=== PATIENT | male | born 1945 | race Caucasian/White ===

== ENCOUNTER → 2023-09-01 | Outpatient (CLI) | payer MEDICARE, SELFPAY ==
--- OUTSIDE RECORDS SUMMARY | 2023-09-01 10:13 | XMS RPT_ITS | CCD ---
Author Name Unknown Address [address] [place] [address] Organization [facility] Care Team Providers Care [place] Supervisor Name Role Phone Aracelis Mancera Unavailable [phone] RAUL BOLDEN Unavailable Unavailable ARACELIS MANCERA Unavailable Unavailab Jamin Romero Unavailable Unavailable Aracelis Mancera Unavailable Unavailable Justen Chavez Unavailable Unavailable Aracelis Mancera Unavailable Unavailable Aracelis Mancera Primary Care Provider [phone] Aracelis Mancera Unavailable Unavailable Unavailable Aracelis Mancera Unavailable Aracelis Vang Unavailable Aracelis Mancera MD Primary Care Provider Unavailable Unavailable MD ARACELIS MANCERA Primary Care DO SONI Krishnamurthy Attending Unavailab Alfonso Mckenzie Attending Unavailable MD ARACELIS MANCERA Primary Care Aracelis Mistry MD Primary Care Provider [phone] Aracelis Mancera MD Unavailable [phone] Dr. Jamin Lynch Referring Unav sylvia Lynch, Dr. Jamin Calderon Attending Unav ailable Calderon, Dr. Aracelis Calderon Primary Care MD ALFONSO Griffiths Attending Unavailable Calderon, Dr. Aracelis Calderon Primary Care MD ALFONSO Griffiths Referring Unavailable ARACELIS MANCERA Attending Unavailable ARACELIS MANCERA Primary Care Unavailable ALFONSO BACK Attending Unavailable ALFONSO BACK Referring Unavailable ARACELIS MANCERA Primary Care Unavailable ARACELIS MANCERA Primary Care Unavailable Allergies Allergy Classification Reported Allergen(s) Allergy Type Date of Onset Reaction(s) Facility Finasteride (3 sources) Finasteride; Translations: [finasteride] Drug Allergy Unknown [facility] Work Phone: NSAIDs (3 sources) Indomethacin; Translations: [indomethacin] Drug Allergy Unknown [facility] Work Phone: Opioid Agonists (3 sources) traMADol; Translations: [tramadol] Drug Allergy Unknown [facility] Work Phone: (20 sources) traMADol; Translations: [TRAMADOL] Propensity to adverse reactions to drug 6 Unknown [facility] (20 sources) Finasteride; Translations: [finasteride] Drug Allergy 3 Unknown [facility] (20 sources) Indomethacin; Translations: [indomethacin] Drug Allergy [address] [facility] Work Phone: Medications Current Medications Medication Drug Class(es) Dates Sig (Normalized) Sig (Original) 1 ml abatacept 125 mg/ml auto-injector (20 sources) Selective T Cell Costimulation Modulator Start: 02-19-2021 Orencia ClickJect 125 mg/mL auto-injector auto-injection Inject under the skin. 0 02/19/2021 Active Completed/Discontinued Medications Medication Drug Class(es) Dates Sig (Normalized) Sig (Original) acetaminophen 325 mg / HYDROcodone bitartrate 5 mg oral tablet (6 sources) Opioid Agonist Start: 08-20-2022 End: 04-12-2023 take 1 tablet by mouth every six hours HYDROcodone-Acetam inophen 5-325 MG Oral Tablet TAKE 1 TABLET Every 6 hours PRN Quantity: 28 Refills: 0 Ordered: 20-Aug-2022 Jamin Lynch MD Start : 20-Aug-2022 Active [id number] 200 actuat albuterol 0.09 mg/actuat metered dose inhaler (10 sources) beta2-Adrenergic Agonist Start: 08-20-2022 take 2-4 puff(s) by inhalation every four hours as needed Albuterol Sulfate HFA 108 (90 Base) MCG/ACT Inhalation Aerosol Solution 2 - 4 PUFFS Q 4 HOURS PRN Quantity: 1 Refills: 11 Ordered: 20-Aug-2022 Jamin Lynch MD Start : 20-Aug-2022 Active Problems Active Problems Problem Classification Problem Date Documented Date Episodic/Chronic Administrative/social admission (20 sources) Drug therapy finding; Translations: [Encounters for other specified administrative purpose] Episodic Allergic reactions (20 sources) Inflammatory dermatosis; Translations: [Contact dermatitis and other eczema, unspecified cause] Onset: 04-07-2023 04-07-2023 Episodic Chronic obstructive pulmonary disease and bronchiectasis (10 sources) Chronic bronchiolitis; Translations: [Other chronic bronchitis] Onset: 04-07-2023 Resolved: 04-12-2023 04-12-2023 Chronic Esophageal disorders (10 sources) Gastroesophageal reflux disease without esophagitis; Translations: [Esophageal reflux] Onset: 04-07-2023 04-07-2023 Chronic Genitourinary symptoms and ill-defined conditions (20 sources) Splitting of urinary stream; Translations: [Nocturia] Onset: 04-07-2023 04-07-2023 Episodic Hyperplasia of prostate (20 sources) Benign prostatic hyperplasia; Translations: [Hypertrophy (benign) of prostate with urinary obstruction and other lower urinary tract symptoms (LUTS)] Onset: 04-07-2023 04-07-2023 Chronic Immunizations and screening for infectious disease (20 sources) Patient encounter status; Translations: [Other specified vaccination] 04-12-2023 Episodic Joint disorders and dislocations; trauma-related (3 sources) Traumatic arthropathy-elbow; 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, left elbow] Onset: 04-27-2016 04-27-2016 Chronic Noninfectious gastroenteritis (20 sources) Collagenous colitis; Translations: [Other and unspecified noninfectious gastroenteritis and colitis] Onset: 04-07-2023 04-07-2023 Chronic Noninfectious gastroenteritis (20 sources) Non-specific colitis; Translations: [Collagenous colitis] Onset: 04-07-2023 04-07-2023 Episodic Past or Other Problems Problem Classification Problem Date Documented Da te Episodic/Chronic E Codes: Fall (1 source) Fall in (into) shower or empty bathtub, initial encounter; Translations: [Fall in (into) shower or empty bathtub, initial encounter] Onset: 08-18-2022 Episodic Other fractures (1 source) Multiple fractures of ribs, right side, initial encounter for closed fracture; Translations: [Multiple fractures of ribs, right side, init for clos fx] Onset: 08-18-2022 Episodic Other lower respiratory disease (20 sources) Cough; Translations: [Cough] Onset: 04-07-2023 Resolved: 04-12-2023 02-10-2021 Episodic Other lower respiratory disease (1 source) Pleurodynia; Translations: [Pleurodynia] Onset: 08-18-2022 Episodic Other non-traumatic joint disorders (4 sources) Pain in wrist; Translations: [Pain in right wrist] Onset: 12-03-2015 12-03-2015 Episodic Other non-traumatic joint disorders (1 source) Pain of right wrist; Translations: [Pain in right wrist] Onset: 04-27-2016 04-27-2016 Episodic Unclassified (2 sources) Drug therapy finding; Translations: [Medication management contract signed] Unclassified (3 sources) Patient encounter status; Translations: [Medicare annual wellness visit, subsequent] Unclassified (2 sources) Onset: 04-12-2023 04-12-2023 NEGATED: Highlighted row has not occurred!Residual codes; unclassified (20 sources) Disease Episodic Results Test Name Value Interpretation Reference Range Facil ity Vital Signs Date Time Vital Sign Value Performing Clinician Malcolm evans 04-12-2023 10:54-0400 Body height 193 cm Aracelis Mancera MD Work Phone: [facility] 04-12-2023 10:54-0400 Body mass index (BMI) [Ratio] 19.76 kg/m2 Aracelis Mancera MD Work Phone: [facility] 04-12-2023 10:54-0400 Body weight 73.63 kg Aracelis Mancera MD Work Phone: [facility] 04-12-2023 10:54-0400 Diastolic blood pressure 68 mm[Hg] Aracelis Mancera MD Work Phone: [facility] 04-12-2023 10:54-0400 Heart rate 53 /min Aracelis Mancera MD Work Phone: [facility] 04-12-2023 10:54-0400 SaO2% (BldA) [Mass fraction] 97 % Aracelis Mancera MD Work Phone: [facility] 04-12-2023 10:54-0400 Systolic blood pressure 120 mm[Hg] Aracelis Mancera MD Work Phone: [facility] 01-06-2023 10:06-0400 Body temperature 97.8 [degF] Aracelis Mancera Work Phone: [facility] Work Phone: 08-20-2022 13:50-0500 Body height 193.04 cm Aracelis Mancera Work Phone: [facility] Work Phone: 08-20-2022 13:50-0500 Body mass index (BMI) [Ratio] 20.7 kg/m2 Aracelis Mancera Work Phone: [facility] Work Phone: 08-20-2022 13:50-0500 Body surface area Derived from formula 2.07 m2 Aracelis Mancera Work Phone: [facility] Work Phone: 08-20-2022 13:50-0500 Body weight 77.14 kg Aracelis Mancera Work Phone: [facility] Work Phone: 08-20-2022 13:50-0500 Diastolic blood pressure 64 mm[Hg] Aracelis Mancera Work Phone: [facility] Work Phone: 08-20-2022 13:50-0500 Heart rate 57 /min Aracelis Mancera Work Phone: [facility] Work Phone: 08-20-2022 13:50-0500 SaO2% (BldA) [Mass fraction] 95 % Aracelis Mancera Work Phone: [facility] Work Phone: 08-20-2022 13:50-0500 Systolic blood pressure 100 mm[Hg] Aracelis Mancera Work Phone: [facility] Work Phone: 04-08-2022 09:53-0400 Body height 193.04 cm Aracelis Mancera Work Phone: [facility] Work Phone: 04-08-2022 09:53-0400 Body mass index (BMI) [Ratio] 20.24 kg/m2 Aracelis Mancera Work Phone: [facility] Work Phone: 04-08-2022 09:53-0400 Body surface area Derived from formula 2.05 m2 Aracelis Mancera Work Phone: [facility] Work Phone: 04-08-2022 09:53-0400 Body weight 75.44 kg Aracelis Mancera Work Phone: [facility] Work Phone: 04-08-2022 09:53-0400 Diastolic blood pressure 60 mm[Hg] Aracelis Mancera Work Phone: [facility] Work Phone: 04-08-2022 09:53-0400 Heart rate 62 /min Aracelis Mancera Work Phone: [facility] Work Phone: 04-08-2022 09:53-0400 SaO2% (BldA) [Mass fraction] 99 % Aracelis Mancera Work Phone: [facility] Work Phone: 04-08-2022 09:53-0400 Systolic blood pressure 118 mm[Hg] Aracelis D Stencel Work Phone: [facility] Work Phone: 09-23-2021 09:57-0500 Body height 193.04 cm Aracelis Bishop Stencel Work Phone: [facility] [address] Work Phone: 09-23-2021 09:57-0500 Body mass index (BMI) [Ratio] 20.94 kg/m2 Aracelis D Stencel Work Phone: [facility] [address] Work Phone: 09-23-2021 09:57-0500 Body surface area Derived from formula 2.08 m2 Aracelis D Stencel Work Phone: [facility] 300 Work Phone: 09-23-2021 09:57-0500 Body temperature 97.3 [degF] Aracelis Bishop Stencel Work Phone: [facility] 300 Work Phone: 09-23-2021 09:57-0500 Body weight 78.02 kg Aracelis Bishop Stencel Work Phone: [facility] Orthoped[facility] 300 Work Phone: 08-26-2021 09:09-0500 Body height 193.04 cm Aracelis Garciacel Work Phone: -[facility] Work Phone: 08-26-2021 09:09-0500 Body mass index (BMI) [Ratio] 20.08 kg/m2 Aracelis D Stencel Work Phone: [facility] Work Phone: 08-26-2021 09:09-0500 Body surface area Derived from formula 2.04 m2 Aracelis D Stencel Work Phone: -[facility] Work Phone: 08-26-2021 09:09-0500 Body weight 74.84 kg Aracelis Mancera Work Phone: [facility] Work Phone: 08-26-2021 09:09-0500 Diastolic blood pressure 60 mm[Hg] Aracelis Mancera Work Phone: [facility] Work Phone: 08-26-2021 09:09-0500 Heart rate 65 /min Aracelis Mancera Work Phone: [facility] Work Phone: 08-26-2021 09:09-0500 Systolic blood pressure 90 mm[Hg] Aracelis Mancera Work Phone: [facility] Work Phone: 08-12-2021 10:25-0500 Body height 193.04 cm Aracelis Garciacel Work Phone: [facility] 300 Work Phone: 08-12-2021 10:25-0500 Body mass index (BMI) [Ratio] 21.67 kg/m2 Aracelis Garciacel Work Phone: [facility] 300 Work Phone: 08-12-2021 10:25-0500 Body surface area Derived from formula 2.11 m2 Aracelis Garciacel Work Phone: [facility] 300 Work Phone: 08-12-2021 10:25-0500 Body temperature 97.1 [degF] Aracelis Garciacel Work Phone: [facility] 300 Work Phone: 08-12-2021 10:25-0500 Body weight 80.74 kg Aracelis Garciacel Work Phone: [facility] 300 Work Phone: 04-07-2021 13:48-0400 Body height 193.04 cm Aracelis Mancera Work Phone: [facility] Work Phone: 04-07-2021 13:48-0400 Body mass index (BMI) [Ratio] 20.34 kg/m2 Aracelis Mancera Work Phone: [facility] Work Phone: 04-07-2021 13:48-0400 Body surface area Derived from formula 2.05 m2 Aracelis Mancera Work Phone: [facility] Work Phone: 04-07-2021 13:48-0400 Body temperature 97.5 [degF] Aracelis Mancera Work Phone: [facility] Work Phone: 04-07-2021 13:48-0400 Body weight 75.81 kg Aracelis Mancera Work Phone: [facility] Work Phone: 04-07-2021 13:48-0400 Diastolic blood pressure 76 mm[Hg] Aracelis Mancera Work Phone: [facility] Work Phone: 04-07-2021 13:48-0400 Heart rate 72 /min Aracelis Mancera Work Phone: [facility] Work Phone: 04-07-2021 13:48-0400 SaO2% (BldA) [Mass fraction] 99 % Aracelis Mancera Work Phone: [facility] Work Phone: 04-07-2021 13:48-0400 Systolic blood pressure 110 mm[Hg] Aracelis Mancera Work Phone: [facility] Work Phone: 02-10-2021 17:00-0400 Diastolic blood pressure 86 mm[Hg] Aracelis Mancera Other Phone: [facility] 02-10-2021 17:00-0400 Heart rate 51 /min Aracelis Garciacel Other Phone: [facility] 02-10-2021 17:00-0400 Respiratory rate 10 /min Aracelis Garciacel Other Phone: [facility] 02-10-2021 17:00-0400 SaO2% (BldA) [Mass fraction] 100 % Aracelis Garciacel Other Phone: [facility] 02-10-2021 17:00-0400 Systolic blood pressure 133 mm[Hg] Aracelis Garciacel Other Phone: [facility] 02-10-2021 12:59-0400 Body height 193 cm Aracelis Garciacel Other Phone: [facility] 02-10-2021 12:59-0400 Body temperature 98.6 [degF] Aracelis Garciadavid Other Phone: [facility] 02-10-2021 12:59-0400 Body weight 74.5 kg Aracelis Garciadavid Other Phone: [facility] 02-21-2020 10:27-0400 BMI (Body Mass Index) 20.45 kg/m2 Jamin Lynch -[facility] Work Phone: 02-21-2020 10:27-0400 Body Temperature 97.1 [degF] Jamin Lynch [facility] Work Phone: 02-21-2020 10:27-0400 Body weight 76.2 kg Jamin Lynch -[facility] Work Phone: 02-21-2020 10:27-0400 BP Diastolic 70 mm[Hg] Jamin Lynch [facility] Work Phone: Encounters Encounter Date Encounter Type Care Provider Facility Start: 07-25-2023 End: 07-26-2023 ambulatory ARACELIS MANCERA [facility] Start: 06-07-2023 End: 06-07-2023 ambulatory ALFONSO BACK [facility] Start: 06-07-2023 End: 06-07-2023 Office outpatient visit 15 minutes Alfonso Back MD Work Phone: [facility] Procedures Date Procedure Procedure Detail Performing Clinician Start: 07-25-2023 CBC W Auto Different ial panel - Blood ARACELIS MANCERA Start: 07-25-2023 Comprehensive metabo lic 2000 panel - Serum or Plasma ARACELIS MANCERA Start: 07-25-2023 PROSTATE SPECIFIC AN TIGEN, SCREEN ARACELIS MANCERA Start: 06-07-2023 POINT OF CARE ULTRAS OUND NO CHARGE ARACELIS MANCERA Start: 02-10-2021 End: 02-10-2021 EKG impression Aracelis Kristyalexy Start: 07-28-2020 OPIATE/OPIOID/BENZO [EXTENDED] PRESCRIPTION COMPLIANCE Jamin Lynch Start: 02-21-2020 PSA screening Dale Lynch Start: 03-30-2019 Colonoscopy Aracelis Kimball MD Work Phone: Colonoscopy Jamin bishop Elbow joint operations Mariano Lynch Hernia repair Jamin alvarado Operative procedure on knee Jamin Lynch Operative procedure on spinal structure Jamin Lynch Tonsillectomy Jamin alvarado Plan of Treatment Date Care Activity Detail Author Start: 03-30-2029 Screening for malign ant neoplasm of colon [facility] Start: 05-23-2024 Screening for osteoporosis Bone Density Scan [facility] Start: 04-13-2024 Medicare Annual Well ness Visit Medicare Annual Wellness Visit (AWV) [facility] Start: 04-13-2024 End: 04-13-2024 Patient encounter procedure 04/13/2024 9:00 AM EDT Office Visit [facility] [address] [place] [id number] Aracelis Mancera MD [address] [place] [address] [facility] Start: 07-08-2023 COVID-19 Vaccine (5 - Moderna series) COVID-19 Vaccine (5 - Moderna series) [facility] Start: 04-12-2023 End: 04-12-2024 Prostate specific Ag [Mass/volume] in Serum or Plasma Prostate Specific Antigen, Screen Lab Routine Screening for prostate cancer Expected: 04/12/2023 (Approximate), Expires: 04/12/2024 [facility] Service Area Work Phone: Immunizations Immunization Date Immunization Notes Care Provider Fa cilitejinder 06-22-2022 Fluzone High-Dose Quadrivalent 0.7 ML Intramuscular Suspension Prefilled Syringe Aracelis Mancera Work Phone: [facility] 06-22-2022 Moderna COVID-19 Biv al Booster 50 MCG/0.5ML Intramuscular Suspension Aracelis Mancera Work Phone: [facility] 06-22-2022 influenza virus vaccine, unspecified formulation Aracelis Mancera MD Work Phone: [facility] Work Phone: 12-04-2021 Moderna COVID-19 Vaccine 100 MCG/0.5ML Intramuscular Suspension Aracelis Mancera [facility] Work Phone: 11-29-2021 Moderna SARS-CoV-2 Vaccination Aracelis Mancera MD Work Phone: [facility] Work Phone: 06-20-2021 Fluad Quadrivalent 0 .5 ML Intramuscular Prefilled Syringe Aracelis Mancera Work Phone: [facility] Work Phone: 06-20-2021 influenza, injectabl e, quadrivalent, contains preservative Aracelis Mancera MD Work Phone: [facility] Work Phone: 06-20-2021 Moderna COVID-19 Vaccine 100 MCG/0.5ML Intramuscular Suspension Aracelis Mancera Work Phone: [facility] 10-24-2020 Moderna COVID-19 Vaccine 100 MCG/0.5ML Intramuscular Suspension Aracelis Mancera Work Phone: [facility] Work Phone: Payers Date Payer Category Payer Private Health Insurance [id number] 2017 Medicare [id number] 2017 Medicare [employer] MANAGED [facility] AETNA MEDICARE PLAN (PPO) [id number] 2017-Present [id number] 2017 Medicare [id number] 1945 Unknown [id number] 1945 Unknown [id number] 1945 Unknown [id number] 1947 Unknown [id number] 1947 Unknown [id number] 1947 Unknown [id number] 1947 Unknown [id number] Medicare [id number] Unknown Social History Date Type Detail Facility Start: 11-15-2017 End: 04-12-2023 Tobacco smoking status NHIS Never smoker [facility] Start: 1945 Sex Assigned At Not on file [facility] Start: 11-15-2017 End: 04-12-2023 Tobacco use and exposure Never used [facility] Start: 11-15-2017 Alcohol intake Current drinke r of alcohol (finding) [facility] Start: 04-12-2023 End: 06-07-2023 Minimum alcohol consumption Minimum alcohol consumption [id number] Work Phone: Tobacco smoking consumption unknown [facility] Start: 04-12-2023 End: 06-07-2023 Alcohol intake Defer [facility] Work Phone: Start: 04-12-2023 End: 06-07-2023 Tobacco use panel [facility] Work Phone: Start: 05-28-2023 End: 06-07-2023 Exposure to SARS-CoV-2 (event) Not sure [facility] Functional Status Date Assessment Result Facility NEGATED: Highlighted row Functional performance Functional status health issues are not documented [facility] Work Phone: Mental Status Date Assessment Result Facility NEGATED: Highlighted row Cognitive function [Interpretation] Cognitive status health issues are not documented Disease [facility] Work Phone: Clinical Notes 08-08-2020 to 06-08-2023 Assessment & Plan Note - Alfonso Back MD - 06/08/2023 7:35 AM EDTAssessment & Plan Note - Alfonso Back MD - 06/08/2023 7:35 AM EDTRjacob Back MD - 06/07/2023 9:30 AM EDT Note Date & Type Note Facility 06-08-2023 Evaluation + Plan note Associated Problem(s): Arthritis of left knee Assessment: Left knee arthritis Plan: Appropriate physical therapy with higher reps and less weight. He can continue his walking program but should maintain good walking surfaces. We discussed strategies for achieving this. I reviewed his ultrasound and x-rays with the patient. Follow-up in 3 months for reevaluation. He did not require renewal of any medications. [facility] Work Phone: 06-08-2023 Miscellaneous Notes Associated Problem(s): Arthritis of left knee Assessment: Left knee arthritis Plan: Appropriate physical therapy with higher reps and less weight. He can continue his walking program but should maintain good walking surfaces. We discussed strategies for achieving this. I reviewed his ultrasound and x-rays with the patient. Follow-up in 3 months for reevaluation. He did not require renewal of any medications. documented in this encounter [facility] Work Phone: 06-07-2023 History of Presen t illness Narrative Assessment/Plan Encounter Diagnoses: Left knee pain, unspecified chronicity Arthritis of left knee Assessment: Left knee arthritis Plan: Appropriate physical therapy with higher reps and less weight. He can continue his walking program but should maintain good walking surfaces. We discussed strategies for achieving this. I reviewed his ultrasound and x-rays with the patient. Follow-up in 3 months for reevaluation. He did not require renewal of any medications. Subjective Patient ID: Colton Hudson is a 77 y.o. male. Chief Complaint: Pain of the Left Knee (Patient states he has been having pain in his left knee since he hurt it 3 years ago. ) Last Surgery: No surgery found Last Surgery Date: No surgery found HPI 77-year-old male who comes in today for evaluation of his left knee arthritis. The patient has benefited from previous treatments. He wanted to discuss physical therapy options and home exercise program and any other medications that might mitigate his symptoms but in general he states he is doing much better than when he first came under treatment. OBJECTIVE: ORTHO EXAM Left knee Exam Appears healthy and in no acute distress. Examination of the knee reveals the following: Inspection: In the standing position, knee alignment is normal. There is no muscle atrophy around the knee. Walking gait is normal. In the supine position, there is no obvious leg length discrepancy or difference in alignment. Palpation: No calor- warmth No tumor- soft tissue swelling Scant effusion. No ecchymosis. Dulor- pain: Minimal tenderness to the lateral joint line. Minimal tenderness to the medial joint line. Minimal pain with patellofemoral compression. Neurovascular: Dorsalis pedis pulse is palpable with brisk capillary refill. Sensation is intact over the lower leg, dorsum of the foot, plantar aspect and first web space. The calves are non-tender to palpation bilaterally. Range of Motion: Active knee extention is 0 degrees and is painless. Active knee flexion is >125 degrees and is painless. Active ankle range of motion is full. Full passive internal and external rotation of the hip does not cause any pain. Normal flexibility in the hamstrings, quadriceps and heel cords. Strength Testing: Hip flexors, hip extensors, abductors, adductors, knee flexors, knee extensors, ankle dorsiflexor and ankle plantar flexor strength are all 5/5. Stability and Provocative Testing: Medial Collateral Ligament: There is no laxity or pain with valgus stress testing at 0 and 15 degrees of knee flexion. Lateral Collateral Ligament: There is no laxity or pain with varus stress testing at 0 and 15 degrees of knee flexion. Anterior Cruciate Ligament: Anterior Drawer reveals a firm endpoint and no laxity. Anterior Cruciate Ligament: Jerome's reveals a firm endpoint and no laxity. Posterior Cruciate Ligament: There is no posterior translation of the tibia plateau. Medial and Lateral Menisci: Jim's test is positive. Hip- Range of motion and cursory exam was non-tender and not provacative. IMAGE RESULTS: XR DEXA bone density Narrative: Interpreted By: Nathan Rome, STUDY: DEXA BONE [id number]/23/2023 9:01 am INDICATION: Signs/Symptoms:high risk med. The patient is a 77 y/o year old M. COMPARISON: 02/18/2017 ACCESSION NUMBER(S): [id number] ORDERING CLINICIAN: ARACELIS MANCERA TECHNIQUE: DEXA BONE DENSITY FINDINGS: LEFT FEMUR -TOTAL Bone Mineral Density: 0.725 T-Score -2.2 Z-Score -1.7 Bone Mineral Density change vs baseline: Not reported Bone Mineral Density change vs previous: Not reported LEFT FEMUR -NECK Bone Mineral Density: 0.527 T-Score -3.7 Z-Score -2.8 RIGHT FEMUR -TOTAL Bone Mineral Density: 0.805 T-Score -1.6 Z-Score -1.1 Bone Mineral Density change vs baseline: Not reported Bone Mineral Density change vs previous: Not reported RIGHT FEMUR -NECK Bone Mineral Density: 0.738 T-Score -2.2 Z-Score -1.1 RIGHT FOREARM Bone Mineral Density: 0.467 T-Score -3.4 Z-Score -3.2 UD Bone Mineral Density: 0.307 T-Score -3.5 Z-Score -3.2 MID Bone Mineral Density: Not reported T-Score Not reported Z-Score Not reported 1/3 Bone Mineral Density: 0.668 T-Score -2.4 Z-Score -2.2 Bone Mineral Density change vs baseline: Not reported Bone Mineral Density change vs previous: Not reported World Health Organization (WHO) criteria for post-menopausal, Women: Normal: T-score at or above -1 SD Osteopenia: T-score between -1 and -2.5 SD Osteoporosis: T-score at or below -2.5 SD 10-year Fracture Risk: Major Osteoporotic Fracture 29.3 Hip Fracture 20.1 Note: If no FRAX score is reported, it is because: Some T-score for Spine Total or Hip Total or Femoral Neck at or below -2.5 This exam was performed at [facility] on a [facility] Dexa Unit. Impression: DEXA: According to World Health Organization criteria, classification is osteoporosis. Followup recommended in two years or sooner as clinically warranted. All images and detailed analysis are available on the Radiology PACS. MACRO: None Signed by: Nathan Rome 05/23/2023 10:49 AM Dictation workstation: [id number] ULTRASOUND DIAGNOSTIC ULTRASOUND REPORT FINAL: Left KNEE Grievance And Appeals Coordinator: Alfonso Back MD Indication: Knee Pain Procedure: Ultrasound, extremity, nonvascular, real-time, COMPLETE, anatomic specific Technique: B-Mode Ultrasound Examination performed using 6- 9 MHz linear transducer with [employer] Software STUDY TYPE: 1. ULTRASOUND EXTREMITY 2. REAL TIME WITH IMAGE DOCUMENTATION 3. NON-VASCULAR 4. COMPLETE STUDY, INCLUDING BUT NOT LIMITED TO MUSCLE, TENDONS, LIGAMENTS, SOFT TISSUES, ADIPOSE TISSUE AND SUBCUTANEOUS TISSUE. Site: KNEE Live ultrasound was performed with of patient's KNEE and PERMANENTLY documented. I personally performed the ultrasound and reviewed the findings. These show: Bridget-articular evaluation: An intact Quadriceps Tendon with the Quadriceps Muscle fibers showing normal striations Quadriceps Tendon demonstrating normal fibrillar pattern. . The Patellar Tendon demonstrates normal fibrillar pattern and is intact. No significant soft tissue fluid collection/abscess appreciated. Joint Evaluation: The lateral joint line shows an intact LCL. Medial joint line exam shows an intact MCL. The patellar tendon was within normal limits. Scant joint effusion noted. The patient tolerated the procedure well. Procedures Orders Placed This Encounter Point of Care Ultrasound documented in this encounter [facility] Work Phone: 04-12-2023 History of Presen t illness Narrative Subjective Reason for Visit: Katherine Hudson is an 77 y.o. male here for a Medicare Wellness visit. Past Medical, Surgical, and Family History reviewed and updated in chart. Reviewed all medications by prescribing practitioner or clinical pharmacist (such as prescriptions, OTCs, herbal therapies and supplements) and documented in the medical record. HPI Since the last office visit there have been no interval operations, hospitalizations, important illnesses or injuries. Drinks 3 wine a day and 1 beer, down to 2i immmoodium a day Fractured 2 ribs After 8 months his lungs cleared, no longer cough productive and is off trelegy and aslo stoopped gerd rx and is better he is no longer taking mesalamine either Sleeps well on trazodone Vellanki tired tayler wothout relief Fam coincerneed re wt loss Optioned for nifedipine for raynauds Bean tremor, father same,rev etoh, option for bblock or primidpone Patient Care Team: Aracelis Mancera MD as PCP - General Aracelis Mancera MD as PCP - [employer] Medicare Advantage PCP Review of Systems Unremarkable except as per HPI Objective Vitals: BP 120/68 Pulse 53 Ht 1.93 m (6' 4 ) Wt 73.6 kg (162 lb 5.1 oz) SpO2 97% BMI 19.76 kg/m Physical Exam General: Alert, No acute distress. Appears stated age Eye: Pupils are equal, round and reactive to light, Extraocular movements are intact, Normal conjunctiva. Neck: Supple, Non-tender, No carotid bruit, No jugular venous distention, No lymphadenopathy, No thyromegaly. Respiratory: Lungs are clear to auscultation, Respirations are non-labored, Breath sounds are equal. Cardiovascular: Normal rate, Regular rhythm, No murmur. Gastrointestinal: Soft, Non-tender, No organomegaly. No solid or pulsatile mass Integumentary: Warm, Dry. No concerning lesions on exposed areas Neurologic: Alert, Oriented. Gross and fine motor intact, CN 2-12 intact Psychiatric: Cooperative, Appropriate mood & affect. Assessment/Plan Problem List Items Addressed This Visit Tremor Other Visit Diagnoses Routine general medical examination at health care facility - Primary Relevant Orders Follow Up In Primary Care - Established Screening for prostate cancer Relevant Orders Prostate Specific Antigen, Screen Follow Up In Primary Care - Established Patient was identified as a fall risk. Risk prevention instructions provided. documented in this encounter [facility] Work Phone: 01-06-2023 History of Presen t illness Narrative 01/[birth year]-68-nksd-old comes in today for evaluation of his left knee. 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 He walks in the [place] he states that going up and down hills seems to aggravate his knee. Sometimes his knee will be in a particular position and he gets pain. His past medical history is significant for rheumatoid arthritis. He takes an antimetabolic and also 5 mg of prednisone every day. During the winter when he was not as active he was able to wean off of this. He understands the need to wean away from the prednisone when able. Only works with his medical team on this. -[facility] Work Phone: 08-18-2022 History of Presen t illness Narrative S/P ER evaluation on 08/18/22 post fall, broke right 7/8 ribs, ER Rx hydrocodonehad URI prior, using Trelegy daily, + cough/congestion, no SOB, no F/C/S, + sputum productionno N/Vtakes 5 mg Prednisone daily for RA [facility] Work Phone: 08-14-2021 History of Presen t illness Narrative Pleasant 76-year-old male presenting for follow-up of left knee pain. Initial visit with id approximately 6 weeks ago, onset of symptoms 7 to 8 months ago, developed pain while stretching. At our initial visit there was some concern for moderate osteoarthritis contributing to symptoms but also was having some soft tissue pain more posterior laterally. Treatment included knee joint injection at initial visit which did help with knee joint pain, he was also referred to physical therapy for more soft tissue, proximal lateral gastroc pain. He has been doing physical therapy for the past month, he has seen improvement in symptoms with this, having only mild discomfort at times currently. He is not taking any medications regularly for pain. [facility] [address] Work Phone: 08-12-2021 History of Presen t illness Narrative Bernadine 76-year-old male presenting for follow-up of left knee pain. Initial visit with id approximately 6 weeks ago, onset of symptoms 7 to 8 months ago, developed pain while stretching. At our initial visit there was some concern for moderate osteoarthritis contributing to symptoms but also was having some soft tissue pain more posterior laterally. Treatment included knee joint injection at initial visit which did help with knee joint pain, he was also referred to physical therapy for more soft tissue, proximal lateral gastroc pain. He has been doing physical therapy for the past month, he has seen improvement in symptoms with this, having only mild discomfort at times currently. He is not taking any medications regularly for pain. [facility] [address] Work Phone: 08-03-2021 History of Presen t illness Narrative Patient LVM with questions about PRP. Returned phone call [facility] -[facility] does PRP , insurance does not pay for this service. The cost is 500.00 at time of visit. He also doesn't have current x rays this will also need done , and eval by [facility]. Left appointment scheduling # . documented in this encounter [facility] 02-09-2021 History of Presen t illness Narrative Patient is a bernadine 76-year-old male presenting for evaluation of left knee/leg pain. Onset of symptoms approximately 6 months ago, said he had acute onset of symptoms while doing some stretching that he normally does, was crossing his left ankle over his right knee when he felt acute onset of pain in the knee, said he did have some swelling at onset. Patient has history of rheumatoid arthritis, is on chronic prednisone, sitting up at the dose of his prednisone for a few days, more little pain and swelling did improve but he has had some lingering pain over the past few months prompting him to be seen today. He admits to pain at the lateral aspect of the knee joint but also more distally, points to near the fibular head just distal this at the muscle belly as area of discomfort. He said it is quite sore to the touch, he will get some discomfort there with day-to-day activity, walking, weightbearing. He gets pain in the knee with stairs, squatting, bending. He takes [id number] medications as needed in addition to his chronic prednisone. He denies any ongoing swelling of the knee, he denies any locking or catching, no instability episodes. [facility] [address] Work Phone: 08-08-2020 Chief complaint Narrative - Reported Follow-up left knee pain) previously seen in office in 08/2020 in which a corticosteroid injection was administered into the left knee and referral to PT. He states PT has reduced his symptoms, however resistant therapy caused increased pain and swelling so he stopped. He does have intermittent clicking laterally of the knee joint. He no longer has to take much OTC ibuprofen at this time. [facility] [address] Work Phone: documented in this encounter [facility] Work Phone: Evaluation note* Diagnosis Left knee pain, unspecified chronicity documented in this encounter [facility] Work Phone: History of Present illness NarrativeThtania is a 75-year-old man who comes in with a history of years of neck pain. It is predominantly on the right side. He does occasionally get some discomfort into the intrascapular region. His history is significant for rheumatoid arthritis and he was recently taken off of methotrexate. He takes anti-inflammatories as needed. He does some exercises. He has no radicular symptoms or myelopathic sym ptoms.[id number] Work Phone: History of Present illness Narrative* cough for months, prodcutive. * uses 5 mg pred daily, when occ goes to 10 mg it does not help with cough. * CXR * Augmentin x 10 days. * no obvious allergies, URI or GERD or asthma. * if above to help, could try pepcid 20 mg bid x 2-3 weeks. [facility] Work Phone: History of Present illness Narrative* Katherine Hudson, a 76 year old male arrives to outpatient PT with complaints of L knee pain. Pt presents with the following impairments: L knee and gastroc pain, deficits in AROM of L knee, deficits in strength of B hip and knee musculature, and restrictions of B IT bands, L gastroc, L quadriceps, andL hamstrings. These impairments contribute to difficulty in activity limitations and participation restrictions including standing, walking, sleeping, and participating in job duties. The pt s signs and symptoms are consistent with his medical diagnosis of L knee arthritis. The pt will benefit fromskilled PT services 2x/week for 4 weeks to address the above stated impairments and functional limitations to maximize participation and ease in household, social, and work related activities. The pthas a good prognosis when considering positive factors including PLOF with barriers such as chronicity of symptoms. The pt verbalized understanding and agreement to goals and POC. Increased restriction of L gastroc and achilles tendon with iASTM. Reduced pain following manual therapy techniques. Education regarding therapeutic dosing of stretches to address hamstring and gastroc restrictions withpatient demonstrating good understanding. Thank you for this referral and please call [phone] with any questions or concerns. * Clinical Presentation: Stable and/or uncomplicated characteristics. * Level of Complexity: low * Problem List: activity limitations, ADLs/IADLs/self care skills, decreased knowledge of HEP, flexibility, pain, participation restrictions, range of motion/joint mobility and strength. [facility] Work Phone: History of Present illness NarrativePatient late to session by 7 mins. Patient was identified by name and date. IASTM/STM completed to reduce soft tissue restrictions at lateral aspect of L knee. After manual and stretching he reported decreased pain and tightness. Instructed in self massage techniques with roller bar to cont in HEP. He voiced good understanding. [facility] Work Phone: History of Present illness Narrative* Since the last office visit there have been no interval operations, hospitalizations, important illnesses or injuries. * Insomnia- talking and tolerating meds, SL- nil, ESPINOZA-0 except nocturia, no hangover, restorative sleep. Desires to continue med. * Still with cough productive translucent mucus in a.m. less through the day. Review of data on file shows Prilosec has helped his digestion but is not reduce the mucus production. He denies allergic rhinitis symptoms. CAT scan was done last summer which did show hyperinflation as such we will proceed with pulmonary function testing he does meet criterion for chronic bronchitis. * Rheumatoid arthritis is managed by Dr. Wan lowery reviewed -[facility] Work Phone: History of Present illness NarrativePatient was identified by name and date. He was late to session by 4 mins. IASTM/STM and cupping completed to reduce soft tissue restrictions. Noted improved ease with transitional movements after manual therapy. He was able to complete all LE PREs without c/o. [facility] Work Phone: History of Present illness Narrative* Since the last office visit there have been no interval operations, hospitalizations, important illnesses or injuries. * Insomnia- talking and tolerating meds, SL- nil, ESPINOZA-0 except nocturia, no hangover, restorative sleep. Desires to continue med. * Still with cough productive translucent mucus in a.m. less through the day. Review of data on file shows Prilosec has helped his digestion but is not reduce the mucus production. He denies allergic rhinitis symptoms. CAT scan was done last summer which did show hyperinflation as such we will proceed with pulmonary function testing he does meet criterion for chronic bronchitis. * Rheumatoid arthritis is managed by Dr. Wan lowery [facility] Work Phone: History of Present illness NarrativePatient was identified by name and date. IASTM/STM completed to reduce soft tissue restrictions at L knee musculature. After manual therapy he was able to demo improved knee flexion. ProgressedCKC exercises without c/o. Most challenged with lateral step downs. [facility] Work Phone: History of Present illness NarrativePatient identified by name and date of . Patient was 13 mins late for appointment therefore treatment time reduced. Reviewed with patient exercises with HEP due to report of increased Sx with HEP, once corrected patient was able to preform in pain free motion. [facility] Work Phone: History of Present illness Narrative* Since the last office visit there have been no interval operations, hospitalizations, important illnesses or injuries. * Insomnia- talking and tolerating meds, SL- nil, ESPINOZA-0 except nocturia, no hangover, restorative sleep. Desires to continue med. * Still with cough productive translucent mucus in a.m. less through the day. Review of data on file shows Prilosec has helped his digestion but is not reduce the mucus production. He denies allergic rhinitis symptoms. CAT scan was done last summer which did show hyperinflation as such we will proceed with pulmonary function testing he does meet criterion for chronic bronchitis. * Rheumatoid arthritis is managed by Dr. Wan lowery [facility] Work Phone: History of Present illness Narrative* Katherine Hudson is progressing well through their POC addressing L knee pain. The pt demonstrates and verbalizes improvements in L gastroc pain, improved L hamstring length, and strength of L knee musculature and B hip musculature L>R. This contributes to greater ease with sleeping however pt is still experiencing difficulty with pain following extended walking and performing job duties. Patient has met or has begun to partially met all his therapy goals. Demonstrates independence with at-home massage techniques and stretches. Education regarding therapeutic dosing for exercises to improve B hip strength and improve stability at L knee with patient verbalizing understanding. * The pt will benefit from continued skilled PT services 1x/week every 2 weeks for remainder of POC. to address the above stated impairments and functional limitations to maximize participation and ease in household, social, and work related activities. Plan to focus on therapeutic exercise for functional strength and stability for L knee and attempt of dry needling for L gastroc pain. Pt verbalized understanding and agreement to goals and POC. Thank you for this referral and please call [phone] with any questions or concerns. [facility] Work Phone: History of Present illness Narrative* The patient is being seen for the subsequent annual wellness visit. * Past Medical, Surgical and Family History: reviewed and updated in chart. * Interval History: Patient has not been hospitalized previously. * Medications and Supplements: Review of all medications by a prescribing practitioner or clinical pharmacist (such as prescriptions, OTCs, herbal therapies and supplements) documented in the medical record. * No, the patient is not using opioids. * Health Risk Assessment:. Paper HRA completed by patient and scanned into chart. * Patient Self Assessment of Health Status: excellent. * Tobacco use: Non-User * Alcohol use: As noted in social history 1 a day. * Illicit drug use: Non-User * Current diet: well balanced diet. * Exercise Frequency: regularly. * Depression/Suicide Screening: . * During the past 2 weeks, the patient has not felt down, depressed or hopeless. * During the past 2 weeks, the patient has not felt little interest or pleasure in doing things. * Hearing Impairment: Patient has significant hearing impairment, bilaterally, He uses a hearing aid. * Cognitive Impairment: No cognitive impairment observed. * Bathing: performs independently. * Dressing: performs independently. * Walking: performs independently. * Toileting: performs independently. * Feeding: performs independently. * Personal Hygiene: performs independently. * Bowels: continent. * Bladder: continent. * Managing Finances: performs independently. * Shopping: performs independently. * Managing Medications: performs independently. * Housework / Basic Home Maintenance: performs independently. * Handling Transportation: performs independently. * Preparing Meals: performs independently. * Using the Telephone/ Communication Devices: performs independently. * Falls Risk Screening:. KATHERINE has not fallen in the last 6 months. * Home safety risk factors: no grab bars in the bathroom. * Advance directives:. Advance Care Planning discussed and documented in the medical record, patient did not wish or was not able to name a surrogate decision maker or provide an advance care plan. Patient has living will. Patient has healthcare POA. * had covid 2 weeks ago, ache , fatigue, diarrhea was worse. takes 3 immodi daily, testis ache * copd- no exacerbations since last ov. has chr bronch and trelegy has helped. * RA on orencia * GERD-Takes PPI daily with some breakthrough symptoms. Reviewed dietary, caffeine, tobacco, alcohol,and NSAID avoidance. [facility] Work Phone: reason for referral (narrative)* Consultation (Routine) - Authorized Specialty Diagnoses / Procedures Referred By Ketan thakur Referred To Contact Primary Care Diagnoses Routine general medical examination at health care facility Screening for prostate cancer Procedures Follow Up In Primary Care - Established Aracelis Mancera MD [address] [place] [address] Referral ID Status Reason Start Date Expiration Date V isits Requested Visits Authorized [id number] Authorized 04/12/2023 10/09/2023 1 1 T [facility] Work Phone: Reason for visit Narrative* Initial Evaluation . Arthritis of L knee. * Referred by: Fabricio Osborn MD [facility] [facility] Work Phone: Reason for visit Narrative* Initial Evaluation . Arthritis of L knee. * Referred by: Fabricio Osborn MD [facility] Work Phone: Assessments Diagnosis Rheumatoid arthritis involvi ng right hand, unspecified rheumatoid factor presence (HCC) - Primary Summary Purpose Family History No Family History Records Found Child Name Dates Details Family history of hypertensi on(V17.49, Z82.49) Status:Active Mother Name Dates Details Family history of malignant neoplasm of breast(V16.3, Z80.3) Status:Active Father Name Dates Details Family history of congenital heart disease(V19.5, Z82.79) Status:Active Child Name Dates Details Family history of hypertensi on(V17.49, Z82.49) Status:Active Mother Name Dates Details Family history of malignant neoplasm of breast(V16.3, Z80.3) Status:Active Father Name Dates Details Family history of congenital heart disease(V19.5, Z82.79) Status:Active Child Name Dates Details Family history of hypertensi on(V17.49, Z82.49) Status:Active Mother Name Dates Details Family history of malignant neoplasm of breast(V16.3, Z80.3) Status:Active Father Name Dates Details Family history of congenital heart disease(V19.5, Z82.79) Status:Active Unknown Family Member Name Dates Details Family history of hypertensi on: Child(V17.49, Z82.49) Status:Active Family history of congenital heart disease: Father(V19.5, Z82.79) Status:Active Family history of malignant neoplasm of breast: Mother(V16.3, Z80.3) Status:Active Unknown Family Member Name Dates Details Family history of malignant neoplasm of breast: Mother(V16.3, Z80.3) Status:Active Family history of congenital heart disease: Father(V19.5, Z82.79) Status:Active Family history of hypertensi on: Child(V17.49, Z82.49) Status:Active Unknown Family Member Name Dates Details Family history of malignant neoplasm of breast: Mother(V16.3, Z80.3) Status:Active Family history of congenital heart disease: Father(V19.5, Z82.79) Status:Active Family history of hypertensi on: Child(V17.49, Z82.49) Status:Active Unknown Family Member Name Dates Details Family history of malignant neoplasm of breast: Mother(V16.3, Z80.3) Status:Active Family history of congenital heart disease: Father(V19.5, Z82.79) Status:Active Family history of hypertensi on: Child(V17.49, Z82.49) Status:Active Unknown Family Member Name Dates Details Family history of malignant neoplasm of breast: Mother(V16.3, Z80.3) Status:Active Family history of congenital heart disease: Father(V19.5, Z82.79) Status:Active Family history of hypertensi on: Child(V17.49, Z82.49) Status:Active Unknown Family Member Name Dates Details Family history of malignant neoplasm of breast: Mother(V16.3, Z80.3) Status:Active Family history of congenital heart disease: Father(V19.5, Z82.79) Status:Active Family history of hypertensi on: Child(V17.49, Z82.49) Status:Active Unknown Family Member Name Dates Details Family history of malignant neoplasm of breast: Mother(V16.3, Z80.3) Status:Active Family history of congenital heart disease: Father(V19.5, Z82.79) Status:Active Family history of hypertensi on: Child(V17.49, Z82.49) Status:Active Unknown Family Member Name Dates Details Family history of malignant neoplasm of breast: Mother(V16.3, Z80.3) Status:Active Family history of congenital heart disease: Father(V19.5, Z82.79) Status:Active Family history of hypertensi on: Child(V17.49, Z82.49) Status:Active Unknown Family Member Name Dates Details Family history of malignant neoplasm of breast: Mother(V16.3, Z80.3) Status:Active Family history of congenital heart disease: Father(V19.5, Z82.79) Status:Active Family history of hypertensi on: Child(V17.49, Z82.49) Status:Active Unknown Family Member Name Dates Details Family history of malignant neoplasm of breast: Mother(V16.3, Z80.3) Status:Active Family history of congenital heart disease: Father(V19.5, Z82.79) Status:Active Family history of hypertensi on: Child(V17.49, Z82.49) Status:Active Unknown Family Member Name Dates Details Family history of malignant neoplasm of breast: Mother(V16.3, Z80.3) Status:Active Family history of congenital heart disease: Father(V19.5, Z82.79) Status:Active Family history of hypertensi on: Child(V17.49, Z82.49) Status:Active Unknown Family Member Name Dates Details Family history of malignant neoplasm of breast: Mother(V16.3, Z80.3) Status:Active Family history of congenital heart disease: Father(V19.5, Z82.79) Status:Active Family history of hypertensi on: Child(V17.49, Z82.49) Status:Active Unknown Family Member Name Dates Details Family history of malignant neoplasm of breast: Mother(V16.3, Z80.3) Status:Active Family history of congenital heart disease: Father(V19.5, Z82.79) Status:Active Family history of hypertensi on: Child(V17.49, Z82.49) Status:Active Unknown Family Member Name Dates Details Family history of malignant neoplasm of breast: Mother(V16.3, Z80.3) Status:Active Family history of congenital heart disease: Father(V19.5, Z82.79) Status:Active Family history of hypertensi on: Child(V17.49, Z82.49) Status:Active Unknown Family Member Name Dates Details Family history of malignant neoplasm of breast: Mother(V16.3, Z80.3) Status:Active Family history of congenital heart disease: Father(V19.5, Z82.79) Status:Active Family history of hypertensi on: Child(V17.49, Z82.49) Status:Active Unknown Family Member Name Dates Details Family history of malignant neoplasm of breast: Mother(V16.3, Z80.3) Status:Active Family history of congenital heart disease: Father(V19.5, Z82.79) Status:Active Family history of hypertensi on: Child(V17.49, Z82.49) Status:Active Unknown Family Member Name Dates Details Family history of malignant neoplasm of breast: Mother(V16.3, Z80.3) Status:Active Family history of congenital heart disease: Father(V19.5, Z82.79) Status:Active Family history of hypertensi on: Child(V17.49, Z82.49) Status:Active Unknown Family Member Name Dates Details Family history of malignant neoplasm of breast: Mother(V16.3, Z80.3) Status:Active Family history of congenital heart disease: Father(V19.5, Z82.79) Status:Active Family history of hypertensi on: Child(V17.49, Z82.49) Status:Active Unknown Family Member Name Dates Details Family history of malignant neoplasm of breast: Mother(V16.3, Z80.3) Status:Active Family history of congenital heart disease: Father(V19.5, Z82.79) Status:Active Family history of hypertensi on: Child(V17.49, Z82.49) Status:Active Unknown Family Member Name Dates Details Family history of malignant neoplasm of breast: Mother(V16.3, Z80.3) Status:Active Family history of congenital heart disease: Father(V19.5, Z82.79) Status:Active Family history of hypertensi on: Child(V17.49, Z82.49) Status:Active Unknown Family Member Name Dates Details Family history of malignant neoplasm of breast: Mother(V16.3, Z80.3) Status:Active Family history of congenital heart disease: Father(V19.5, Z82.79) Status:Active Family history of hypertensi on: Child(V17.49, Z82.49) Status:Active Unknown Family Member Name Dates Details Family history of hypertensi on: Child(V17.49, Z82.49) Status:Active Family history of congenital heart disease: Father(V19.5, Z82.79) Status:Active Family history of malignant neoplasm of breast: Mother(V16.3, Z80.3) Status:Active Unknown Family Member Name Dates Details Family history of malignant neoplasm of breast: Mother(V16.3, Z80.3) Status:Active Family history of congenital heart disease: Father(V19.5, Z82.79) Status:Active Family history of hypertensi on: Child(V17.49, Z82.49) Status:Active Unknown Family Member Name Dates Details Family history of hypertensi on: Child(V17.49, Z82.49) Status:Active Family history of congenital heart disease: Father(V19.5, Z82.79) Status:Active Family history of malignant neoplasm of breast: Mother(V16.3, Z80.3) Status:Active Unknown Family Member Name Dates Details Family history of malignant neoplasm of breast: Mother(V16.3, Z80.3) Status:Active Family history of congenital heart disease: Father(V19.5, Z82.79) Status:Active Family history of hypertensi on: Child(V17.49, Z82.49) Status:Active Unknown Family Member Name Dates Details Family history of hypertensi on: Child(V17.49, Z82.49) Status:Active Family history of congenital heart disease: Father(V19.5, Z82.79) Status:Active Family history of malignant neoplasm of breast: Mother(V16.3, Z80.3) Status:Active Unknown Family Member Name Dates Details Family history of malignant neoplasm of breast: Mother(V16.3, Z80.3) Status:Active Family history of congenital heart disease: Father(V19.5, Z82.79) Status:Active Family history of hypertensi on: Child(V17.49, Z82.49) Status:Active Unknown Family Member Name Dates Details Family history of malignant neoplasm of breast: Mother(V16.3, Z80.3) Status:Active Family history of congenital heart disease: Father(V19.5, Z82.79) Status:Active Family history of hypertensi on: Child(V17.49, Z82.49) Status:Active Unknown Family Member Name Dates Details Family history of malignant neoplasm of breast: Mother(V16.3, Z80.3) Status:Active Family history of congenital heart disease: Father(V19.5, Z82.79) Status:Active Family history of hypertensi on: Child(V17.49, Z82.49) Status:Active Advance Directives No Advanced Directives Records FoundNo Advanced Directives Records FoundNo Advanced Directives Records FoundNo Advanced Directives Records FoundNo Advanced Directives Records FoundNo Advanced Directives Records FoundNo Advanced Directives Records FoundNo Advanced Directives Records FoundNo Advanced Directives Records Found Chief Complaint LUMBAR PAIN NPVLUMBAR PAIN NPVPRODUCTIVE COUGH(SINCE AUG)- VACCINATED* L knee pain. -02/14. * start January, stretching for exercise 6 MO INSOMNIA, RA CK6 MO INSOMNIA, RA CK6 MO INSOMNIA, RA CKMCWPOST [facility] NOW HAS RATTLE IN CHEST* Left Knee pain * PATIENT PRESENTS TO OFFICE FOR : Left Knee pain * ONSET: 6 MO * DOI / DOS: NA * IMPROVED: NO * PAIN: 09/17 * PAIN MEDS TAKEN: NORCO * ROM: RESTRICTED * ICE / HEAT APPLIED: HEAT * BRACE WORN: YES * LAST INJECTION: NO * REFERRAL: * ACCOMPANIED BY: SELF Additional Source Comments (unrecognized sect ion and content) No Status Records FoundNo Status Records FoundNo Status Records FoundNo Status Records FoundNo Status Records FoundNo Status Records FoundNo Status Records FoundNo Status Records FoundNo Status Records Found INFORMATION SOURCE (unrecogn ized section and content) DATE CREATED AUTHOR AUTHOR'S ORGANIZ ATION 04/20/2019 [facility] DATE CREATED AUTHOR AUTHOR'S ORGANIZ ATION 06/24/2019 [facility] DATE CREATED AUTHOR AUTHOR'S ORGANIZ ATION 02/08/2021 [facility] [place] DATE CREATED AUTHOR AUTHOR'S ORGANIZ ATION 01/16/2023 [employer] DATE CREATED AUTHOR AUTHOR'S ORGANIZ ATION 01/16/2023 [facility] DATE CREATED AUTHOR AUTHOR'S ORGANIZ ATION 05/01/[address] [facility] DATE CREATED AUTHOR AUTHOR'S ORGANIZ ATION 06/08/2023 [facility] DATE CREATED AUTHOR AUTHOR'S ORGANIZ ATION 07/31/2023 [facility] [place] <item> Privacy Markings (unrecogniz ed section and content) Section Author: Kim Pindeo PROHIBITION ON REDISCLOSURE OF CONFIDENTIAL INFORMATION This notice accompanies a disclosure of information concerning a client made to you with the consent of such client. Care Teams (unrecognized sec tion and content) [employer] [employer] [place] Supervisor Relationship Specialty Start Date End Date Aracelis Mancera MD [address] [id number] PCP - General 04/10/19 Aracelis Mancera MD [address] [facility] [place] [address] PCP - [employer] PCP 08/08/22 [employer] Supervisor Relationship Specialty Start Date End Date Aracelis Mancera MD [address] [facility] [place] [address] PCP - General 04/10/19 Aracelis Mancera MD [address] [place] [address] PCP - [employer] PCP 08/08/22 Reason for Visit (unrecogniz ed section and content) Reason Comments Pain Patient states he bean s been having pain in his left knee since he hurt it 3 years ago. FOR RECORDS PERTAINING TO PATIENTS WHO ARE OR HAVE BEEN ENROLLED IN A CHEMICAL DEPENDENCY/SUBSTANCEABUSE PROGRAM, SOME INFORMATION MAY BE OMITTED. This clinical summary was aggregated from multiple sources. Caution should be exercised in using it in the provision of clinical care. This summary normalizes information from multiple sources, and as a consequence, information in this document may materially change the coding, format and clinical context of patient data. In addition, data may be omitted in some cases. CLINICAL DECISIONS SHOULD BE BASED ON THE PRIMARY CLINICAL RECORDS. [facility] [employer] [facility]. provides no warranty or guarantee of the accuracy or completeness of information in this document.
[2023-09-05 13:07] LABS: QNTFERON TB Mitogen Value > 10.00 IU/mL (.); QNTFERON TB Nil Value 0 IU/mL (.); QNTFERON TB1+ Ag Value 0.01 IU/mL (.); QNTFERON TB2+ Ag Value 0 IU/mL (.); QNTIFERON TB Positive Criteria Negative (Negative)
== END | disposition home or self-care (01) ==
PROVIDERS: PCP Family Medicine; Referring Provider Internal Medicine Rheumatology; Visit Provider Internal Medicine Rheumatology
DX: M06.09 Rheumatoid arthritis without rheumatoid factor, multiple sites (principal); M35.00 Sjogren syndrome, unspecified; K51.90 Ulcerative colitis, unspecified, without complications; M17.0 Bilateral primary osteoarthritis of knee; M35.7 Hypermobility syndrome; Q66.70 Congenital pes cavus, unspecified foot; R19.7 Diarrhea, unspecified; M51.37 Other intervertebral disc degeneration, lumbosacral region; Z79.899 Other long term (current) drug therapy
CPT/HCPCS: 36415; 86480